=== PATIENT | female | born 1985 | race Caucasian/White ===

== ENCOUNTER 2018-01-31 21:20 | Emergency (ER) | payer SELFPAY ==
[~2018-01-31] VITALS: Ht 170.2 cm; Wt 135.4 kg
[2018-01-31 21:21] VITALS: BP 144/99
[2018-01-31] MEDS ORDERED: CEFTRIAXONE 250 MG ONE (22:00)
[2018-01-31] MEDS ORDERED: AZITHROMYCIN 500 MG TABLET PO ONE (22:00)
[2018-01-31] MEDS ORDERED: CEFTRIAXONE 250 MG IM ONE (22:00)
[2018-01-31] MEDS ORDERED: AZITHROMYCIN 250 MG TABLET ONE (22:02)
== END 2018-01-31 22:10 | disposition home or self-care (01) ==
LOC: ED 21:30
DX: H92.02 Otalgia, left ear (principal)
CPT/HCPCS: 96372; 99283; J0696

== ENCOUNTER 2018-04-19 21:06 | Emergency (ER) | payer OTHER ==
[~2018-04-19] VITALS: Ht 170.2 cm; Wt 135.9 kg
[2018-04-19 22:15] LABS: BASOPHILS # (AUTO) 0.04 x10^3/uL (0-0.1); BASOPHILS % (AUTO) 1 % (0-1); EOSINOPHILS # (AUTO) 0.13 x10^3/uL (0-0.4); EOSINOPHILS % (AUTO) 2 % (1-7); LYMPHOCYTES # (AUTO) 2.12 x10^3/uL (1-3.4); LYMPHOCYTES % (AUTO) 30 % (22-44); MD NO; MEAN CORPUSCULAR HEMOGLOBIN 29.6 pg (27.0-34.8); MEAN CORPUSCULAR HGB CONC 33.2 g/dL (32.4-35.8); MEAN CORPUSCULAR VOLUME 89.1 fL (80-100); MEAN PLATELET VOLUME 7.6 fL (7.4-10.4); MONOCYTES # (AUTO) 0.66 x10^3/uL (0.2-0.8); MONOCYTES % (AUTO) 9 % (2-9); NEUTROPHILS # (AUTO) 4.21 x10^3/uL (1.8-6.8); NEUTROPHILS % (AUTO) 59 % (42-75); PLATELET COUNT 398 x10^3/uL (130-400); RED BLOOD COUNT 4.09 x10^6/uL (3.82-5.3); RED CELL DISTRIBUTION WIDTH 15.7 % (9.6-15.2)
[2018-04-19 22:26] LABS: ALANINE AMINOTRANSFERASE 23 U/L (12-78); ALBUMIN 3.1 g/dL (3.4-5.0); ANION GAP 7 mmol/L (5-15); CALCIUM 8.5 mg/dL (8.5-10.1); CHLORIDE 107 mmol/L (98-107); CREATININE 0.83 mg/dL (0.55-1.02)
[2018-04-19 22:31] LABS: ALKALINE PHOSPHATASE 83 U/L (45-117); BILIRUBIN,TOTAL 0.3 mg/dL (0.2-1.0); TOTAL PROTEIN 6.9 g/dL (6.4-8.2)
[2018-04-19 22:32] VITALS: BP 126/67
== END 2018-04-19 23:05 | disposition home or self-care (01) ==
LOC: ED 21:51
DX: R60.9 Edema, unspecified (principal); R53.1 Weakness; R00.2 Palpitations; J45.909 Unspecified asthma, uncomplicated; F17.200 Nicotine dependence, unspecified, uncomplicated
CPT/HCPCS: 36415; 80053; 83880; 84703; 85025; 93005; 93970; 99285

== ENCOUNTER 2020-03-10 19:40 | Emergency (ER) | payer MEDICAID, OTHER ==
[~2020-03-10] VITALS: Ht 170.2 cm; Wt 138.2 kg
[2020-03-10 19:51] VITALS: BP 125/77
--- NOTE | 2020-03-10 20:11 | NUR ---
PT PRESENTING TO ER FOR BODY RASH STARTING YESTERDAY AFTER GETTING DOG OUT OF BUSHES, HIVES NOTED. NO OTC MEDS TAKEN. PT ALSO STS PARTNER HAS STI, PT CURRENTLY NO SYMPTOMS BUT WANTS TO BE CHECKED. CALL LIGHT WITHIN REACH. PA AT BEDSIDE. AWAITING ORDERS AT THIS TIME
[2020-03-10] MEDS ORDERED: DIPHENHYDRAMINE 50 MG/ML, 1ML ONE (20:25)
[2020-03-10] MEDS ORDERED: LIDOCAINE-MPF 1%, 2ML ONE (20:25)
[2020-03-10] MEDS ORDERED: DEXAMETHASONE 4 MG TABLET ONE (20:25)
[2020-03-10] MEDS ORDERED: FAMOTIDINE 20 MG TABLET ONE (20:25)
[2020-03-10] MEDS ORDERED: AZITHROMYCIN 250 MG TABLET ONE (20:26)
[2020-03-10] MEDS ORDERED: CEFTRIAXONE 250 MG ONE (20:26)
[2020-03-10] MEDS ORDERED: AZITHROMYCIN 500 MG TABLET PO ONE (20:30)
[2020-03-10] MEDS ORDERED: FAMOTIDINE 20 MG TABLET PO ONE (20:30)
[2020-03-10] MEDS ORDERED: DEXAMETHASONE 4 MG/ML, 1ML PO ONE (20:30)
[2020-03-10] MEDS ORDERED: CEFTRIAXONE 250 MG IM ONE (20:30)
[2020-03-10] MEDS ORDERED: DIPHENHYDRAMINE 50 MG/ML, 1ML IM ONE (20:30)
== END 2020-03-10 21:21 | disposition home or self-care (01) ==
LOC: ED 20:44
DX: L50.9 Urticaria, unspecified (principal); Z20.2 Contact with and (suspected) exposure to infections with a predominantly sexual mode of transmission; I50.9 Heart failure, unspecified; Z86.718 Personal history of other venous thrombosis and embolism; J45.909 Unspecified asthma, uncomplicated
CPT/HCPCS: 96372; 99284; J0696; J1100; J1200

== ENCOUNTER 2020-10-01 05:35 | Emergency (ER) | payer MEDICAID ==
[~2020-10-01] VITALS: Ht 170.2 cm; Wt 140.9 kg
[2020-10-01] MEDS ORDERED: NEOSPORIN OINT. PKT 1 PACKET ONE ×2 (06:18→08:11)
[2020-10-01] MEDS ORDERED: ACETAMINOPHEN 500 MG TABLET PO ONE (07:30)
--- NOTE | 2020-10-01 07:30 | NUR ---
assumed care of pt. report from Franc IRVIN pt here for dog bite to her R hand after breaking up a dog fight with her own dogs bleeding controlled at this time pt medicated ofr pain
[2020-10-01] MEDS ORDERED: ACETAMINOPHEN 500 MG TABLET ONE (08:04)
--- NOTE | 2020-10-01 08:20 | NUR ---
pt wound has been cleaned and dressed. ice pack given for comfort pt reports thst her dog is vaccinated and up to date on all care
[2020-10-01 08:46] VITALS: BP 159/80
== END 2020-10-01 08:50 | disposition home or self-care (01) ==
LOC: ED 07:39
DX: S50.871A Other superficial bite of right forearm, initial encounter (principal); S60.571A Other superficial bite of hand of right hand, initial encounter; J45.909 Unspecified asthma, uncomplicated; E66.9 Obesity, unspecified; Z86.718 Personal history of other venous thrombosis and embolism; W54.0XXA Bitten by dog, initial encounter; Y93.89 Activity, other specified; Y92.098 Other place in other non-institutional residence as the place of occurrence of the external cause; Y99.8 Other external cause status
CPT/HCPCS: 99283

== ENCOUNTER 2020-11-12 20:39 | Emergency (ER) | payer MEDICAID ==
[~2020-11-12] VITALS: Ht 170.2 cm; Wt 120.0 kg
--- NOTE | 2020-11-12 20:51 | NUR ---
Waiting for ERP evaluation.
--- NOTE | 2020-11-12 21:03 | NUR ---
Ice/elevation to right lower ext. CSMTP adequate
[2020-11-12] MEDS ORDERED: KETOROLAC 60 MG/2 ML ONE (21:16)
--- NOTE | 2020-11-12 21:17 | NUR ---
Portable xray done. Medicated per order. Will continue to monitor.
[2020-11-12] MEDS ORDERED: KETOROLAC 30 MG/1 ML IM ONE (21:30)
--- NOTE | 2020-11-12 22:33 | NUR ---
Pt sleeping, RR equal and unlabored. Waiting for rad reading on xray.
[2020-11-12 22:34] VITALS: BP 138/78
--- NOTE | 2020-11-12 23:02 | NUR ---
Pt fitted for crutches, demo pt returned demo. Joshua wrap to ankle. Pt assisted to dc desk, given all instruct. Pt verbalizes understanding of instruct and f/u.
== END 2020-11-12 23:05 | disposition home or self-care (01) ==
LOC: ED 21:16
DX: S93.491A Sprain of other ligament of right ankle, initial encounter (principal); M19.90 Unspecified osteoarthritis, unspecified site; I50.9 Heart failure, unspecified; E66.9 Obesity, unspecified; Z68.41 Body mass index [BMI] 40.0-44.9, adult; Z86.718 Personal history of other venous thrombosis and embolism; W50.2XXA Accidental twist by another person, initial encounter; Y93.89 Activity, other specified; Y92.89 Other specified places as the place of occurrence of the external cause; Y99.8 Other external cause status
CPT/HCPCS: 73610; 96372; 99283; J1885

== ENCOUNTER 2021-01-19 14:22 | Emergency (ER) | payer MEDICAID ==
[~2021-01-19] VITALS: Ht 170.2 cm; Wt 148.5 kg
[2021-01-19 14:24] VITALS: BP 148/90
== END 2021-01-19 15:15 | disposition home or self-care (01) ==
LOC: ED 14:45
DX: K02.9 Dental caries, unspecified (principal); K08.89 Other specified disorders of teeth and supporting structures; I50.9 Heart failure, unspecified; J45.909 Unspecified asthma, uncomplicated; F17.210 Nicotine dependence, cigarettes, uncomplicated; Z86.718 Personal history of other venous thrombosis and embolism
CPT/HCPCS: 99283

== ENCOUNTER 2021-01-23 22:39 | Emergency (ER) | payer MEDICAID ==
[~2021-01-23] VITALS: Ht 170.2 cm; Wt 146.4 kg
[2021-01-23] MEDS ORDERED: KETOROLAC 30 MG/1 ML IM ONE (23:30)
[2021-01-23] MEDS ORDERED: ACETAMINOPHEN 500 MG TABLET PO ONE (23:30)
[2021-01-23] MEDS ORDERED: DIAZEPAM 5 MG TABLET PO ONE (23:30)
[2021-01-23] MEDS ORDERED: DIAZEPAM 5 MG TABLET ONE (23:31)
[2021-01-23] MEDS ORDERED: KETOROLAC 30 MG/1 ML ONE (23:31)
[2021-01-23] MEDS ORDERED: ACETAMINOPHEN 500 MG TABLET ONE (23:31)
--- NOTE | 2021-01-24 00:02 | NUR ---
PT RETURNED FROM IMAGING
[2021-01-24 00:42] VITALS: BP 114/82
--- NOTE | 2021-01-24 00:43 | NUR ---
Patient given discharge instructions and they have confirmed that they understand the instructions. Patient ambulatory with steady gait.
== END 2021-01-24 00:44 | disposition home or self-care (01) ==
LOC: ED 23:04
DX: S16.1XXA Strain of muscle, fascia and tendon at neck level, initial encounter (principal); G89.29 Other chronic pain; M25.552 Pain in left hip; I50.9 Heart failure, unspecified; J45.909 Unspecified asthma, uncomplicated; F17.210 Nicotine dependence, cigarettes, uncomplicated; Z86.718 Personal history of other venous thrombosis and embolism; V49.49XA Driver injured in collision with other motor vehicles in traffic accident, initial encounter; Y93.89 Activity, other specified; Y92.488 Other paved roadways as the place of occurrence of the external cause; Y99.8 Other external cause status
CPT/HCPCS: 72125; 73502; 96372; 99284; 99406; J1885

== ENCOUNTER 2021-03-11 23:17 | Emergency (ER) | payer MEDICAID ==
[~2021-03-11] VITALS: Ht 170.2 cm; Wt 149.4 kg
[2021-03-12] MEDS ORDERED: ACETAMINOPHEN 500 MG TABLET ONE (00:46)
[2021-03-12] MEDS ORDERED: IBUPROFEN 600 MG TABLET ONE (00:46)
--- NOTE | 2021-03-12 00:49 | NUR ---
TASK RN: PT MEDICATED PER DEC. PT NAD, RESTING ON GURNEY, DENIES ADDITIONAL QUESTIONS OR NEEDS AT THIS TIME. BED IN [facility], RAILS ENGAGED, CALL LIGHT ON LAP, WCTM.
[2021-03-12 00:55] LABS: MICROSCOPIC AUTO
[2021-03-12] MEDS ORDERED: ACETAMINOPHEN 500 MG TABLET PO ONE (01:00)
[2021-03-12] MEDS ORDERED: IBUPROFEN 600 MG TABLET PO ONE (01:00)
[2021-03-12 01:27] VITALS: BP 129/73
--- NOTE | 2021-03-12 01:27 | NUR ---
PT REC'VD DISCHARGE INSTRUCTIONS AND EDUCATION. PT HAD NO FURTHER QUESTIONS. PT AMBULATED TO DC AREA, STEADY GAIT.
== END 2021-03-12 01:35 | disposition home or self-care (01) ==
LOC: ED 03-12 00:54
DX: M91.0 Juvenile osteochondrosis of pelvis (principal); B34.9 Viral infection, unspecified; R30.0 Dysuria; J45.909 Unspecified asthma, uncomplicated
CPT/HCPCS: 81001; 87086; 99283